=== PATIENT | male | born 1995 | race Caucasian/White ===

== ENCOUNTER → 2020-01-24 11:42 | Outpatient (BNVA) | payer BC, SELFPAY | PROVIDERS: Family Provider Family Medicine; PCP Family Medicine; Visit Provider Nurse Practitioner Family | DX: M79.671 Pain in right foot (principal) | CPT/HCPCS: 73630 ==

== ENCOUNTER 2020-08-23 09:53 | Outpatient (CLI) | payer BC, SELFPAY ==
--- NOTE | 2020-08-23 09:45 | XR_ITS ---
WS: [id number] Exam: XR KUB [id number] Date/Time of Exam: 08/23/2020 10:00 AM Reason For Exam: URETERAL CALCULUS Comparison 12/23/2018. No bowel obstruction or free air. Visualized organ margins are unremarkable. Moderate amount stool in the colon. Regional bony elements are intact. No abnormal abdominal calcifications XR/XR KUB [id number] IMPRESSION: 1. No acute abdominal finding.
== END 2020-08-23 09:54 | disposition home or self-care (01) ==
LOC: RAD 09:55
PROVIDERS: PCP Family Medicine; Visit Provider Urology
DX: N20.1 Calculus of ureter (principal)
CPT/HCPCS: 74018; 81003

== ENCOUNTER 2022-12-18 14:15 | Outpatient (CLI) | payer SELFPAY ==
--- NOTE | 2022-12-18 14:31 | XR_ITS ---
WS: [id number] XR KUB [id number] REASON FOR EXAM: hematuria with flank pain FINDINGS: No intrarenal calculi identified. No calculi along the course of the ureters identified. No calculi identified overlying the bladder area. No other significant abdominal abnormality identified. XR/XR KUB [id number] IMPRESSION: No urinary tract calculi or other significant abdominal abnormality.
== END 2022-12-18 14:16 | disposition home or self-care (01) ==
LOC: RAD 14:17
PROVIDERS: PCP Family Medicine; Visit Provider Urology
DX: R31.9 Hematuria, unspecified (principal)
CPT/HCPCS: 74018; 81000; 87086

== ENCOUNTER 2023-01-14 12:25 | Emergency (ER) | payer OTHER, SELFPAY ==
[2023-01-14 12:36] VITALS: BP 139/98; PULSE 56; RESP 16; TEMP 36.7; O2SAT 98
[2023-01-14 12:49] VITALS: BP 140/75
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
[2023-01-14 13:36] LABS: Basophils % 0.3 %; Eosinophils % 0.5 %; Hematocrit 43.4 % (42.0-52.0); Hemoglobin 14.4 g/dL (11.7-16.6); Lymphocytes # 1.8 10^3/uL (0.8-4.8); Mean Corpuscular HGB Conc 33.2 g/dL (30.0-36.0); Mean Corpuscular Hemoglobin 28.9 pg (28.0-34.0); Mean Platelet Volume 9.5 fL (7.4-10.4); Monocytes # 0.6 10^3/uL (0.2-0.9); Monocytes % 9.7 %; Neutrophils # 3.49 10^3/uL (1.8-7.7); Neutrophils % 59.2 %; Nucleated Red Blood Cells % 0 %; Platelet Count 218 10^3/cmm (130-400); Red Blood Count 4.99 10^6/uL (4.1-5.3); Red Cell Distribution Width 11.7 % (12.1-15.1); White Blood Count 5.9 10^3/uL (4.0-10.0)
[2023-01-14 13:42] VITALS: BP 140/65; PULSE 62; O2SAT 98
[2023-01-14 13:57] LABS: Alanine Aminotransferase 16 U/L (0-41); Albumin Level 4.3 g/dL (3.5-5.2); Alkaline Phosphatase 59 U/L (40-130); Anion Gap 12.8 (5-19); Aspartate Amino Transferase 16 U/L (0-40); Blood Urea Nitrogen 10 mg/dL (6-20); Calcium 9.2 mg/dL (8.5-10.5); Carbon Dioxide 28 mmol/L (22-29); Chloride 97 mmol/L (98-107); Globulin 2.8 g/dL (1.3-4.6); Glomerular Filtration Rate 116.9 mL/min (90-130); Glucose 88 mg/dL (65-115); Lipase 17 U/L (13-60); Osmolality Calculated 276 mOsm/kg (285-295); Potassium 3.8 mmol/L (3.5-5.1); Sodium 134 mmol/L (136-145); Total Bilirubin 0.6 mg/dL (0.15-1.2); Total Protein 7.1 g/dL (6.6-8.7)
[2023-01-14 14:19] LABS: Add Urine Culture? Yes; Add Urine Microscopic? YES; Bacteria Urine 1+ /hpf; Bilirubin Urine Neg (Negative); Blood Urine 3+ (Negative); Glucose Urine UA Norm (Normal); Ketones Urine Negative (Negative); Leukocyte Esterase Urine Negative (Negative); Nitrate Urine Negative (Negative); Protein Urine 3+ (Negative); RBC Urine 80-100 /hpf (0-2); Squamous Epithelial Cell Urine 0-4 /hpf (0-5); Urine Appearance Cloudy (CLEAR); Urine Color Brown (Yellow); Urobilinogen Urine Norm (Negative); WBC Urine 0-4 /hpf (0-5); pH Urine 5 (5-7)
[2023-01-14 14:55] VITALS: BP 130/79; PULSE 57; O2SAT 98
== END 2023-01-14 14:56 | disposition home or self-care (01) ==
PROVIDERS: Emergency Provider Emergency Medicine; PCP Family Medicine
DX: R10.33 Periumbilical pain (principal); R31.0 Gross hematuria; R80.9 Proteinuria, unspecified; F17.220 Nicotine dependence, chewing tobacco, uncomplicated
CPT/HCPCS: 80053; 81001; 83690; 85025; 87086; 99283

== ENCOUNTER → 2023-01-17 10:05 | Outpatient (BNVA) | payer OTHER, SELFPAY | PROVIDERS: PCP Family Medicine; Visit Provider Family Medicine | DX: R31.9 Hematuria, unspecified (principal); R80.9 Proteinuria, unspecified; R19.7 Diarrhea, unspecified; K50.90 Crohn's disease, unspecified, without complications | CPT/HCPCS: 86021; 86036; 86038 ==

== ENCOUNTER → 2023-01-18 09:23 | Outpatient (BNVA) | payer OTHER, SELFPAY | PROVIDERS: PCP Family Medicine; Visit Provider Family Medicine | DX: R19.7 Diarrhea, unspecified (principal) | CPT/HCPCS: 87493; 87506 ==

== ENCOUNTER 2023-03-16 19:34 | Emergency (ER) | payer OTHER, SELFPAY ==
[2023-03-16 19:37] VITALS: BP 127/76; PULSE 59; RESP 14; TEMP 36.6; O2SAT 97
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
== END 2023-03-16 20:23 | disposition home or self-care (01) ==
PROVIDERS: Emergency Provider Physician Assistant; PCP Family Medicine
DX: N99.820 Postprocedural hemorrhage of a genitourinary system organ or structure following a genitourinary system procedure (principal); Z98.52 Vasectomy status; F17.220 Nicotine dependence, chewing tobacco, uncomplicated
CPT/HCPCS: 99282

== ENCOUNTER → 2024-06-10 15:18 | Outpatient (BNVA) | payer SELFPAY | PROVIDERS: PCP Family Medicine; Visit Provider Family Medicine | DX: R30.0 Dysuria (principal); N50.811 Right testicular pain | CPT/HCPCS: 87086; 87491; 87591 ==

== ENCOUNTER → 2024-06-12 09:16 | Outpatient (BNVA) | payer SELFPAY | PROVIDERS: PCP Family Medicine; Visit Provider Family Medicine | DX: Z20.2 Contact with and (suspected) exposure to infections with a predominantly sexual mode of transmission (principal) | CPT/HCPCS: 80074; 86592; 87806 ==

== ENCOUNTER → 2024-12-04 11:33 | Outpatient (BNVA) | payer SELFPAY | PROVIDERS: PCP Family Medicine; Visit Provider Family Medicine | DX: Z51.81 Encounter for therapeutic drug level monitoring (principal); E03.9 Hypothyroidism, unspecified; R19.7 Diarrhea, unspecified | CPT/HCPCS: 80053; 83735; 84443; 85025; 86141 ==